=== PATIENT | female | born 1930 | race Caucasian/White ===

== ENCOUNTER 2017-10-07 20:59 | Inpatient (IN) | payer MEDICARE, OTHER ==
[~2017-10-07] VITALS: Ht 165.1 cm; Wt 78.9 kg
[~2017-10-07 20:59] MED LIST: ACETAMINOPHEN325 M1 PO; ADULT LOW DOSE81 MG PO; ARICEPT10 M1 PO; ARICEPT10 MG PO; ARTIFICIAL TEAR15 M1 INTRAOCULR; ASPIRIN EC81 M1 PO; ASPIRIN81 M2 PO; ATENOLOL 50 MG50 M1 PO; ATORVASTATIN CA10 MG PO; AVELOX400 MG PO; CALCARB 600 WI1 EACH PO; CELEBREX50 MG PO; COREG12.5 MG PO; CRANBERRY450 M1 PO; DESYREL50 MG PO; EXELON 9.5 MG9.5 MG; EXELON 9.5 MG9.5 MG TOP; HCTZ PO; HYDROCHLOROTHIA25 M1 PO; KLOR-CON 1010 MEQ PO; LEXAPRO 10 MG T10 MG PO; LEXAPRO20 MG PO; LIPITOR10 MG PO; LOPERAMIDE1 MG/7.5 M PO; MILK OF MA2400 MG/10 PO; MULTI-VITAMIN1 EAC4 PO; NORVASC10 MG PO; ONE-A-DAY WOMENS; PROTONIX40 M2 PO; PROTONIX40 MG PO; REMERON15 MG PO; RISPERDAL0.25 MG PO; SEE COMMENTS; VICODIN PO; VISION VITAMIN1 EACH PO; VITAMIN A10000 UNI3 PO; VITAMIN B-12500 MCG PO; VITAMIN C120 GM PO; VITAMIN D1000 UNI1 PO
[2017-10-07 21:02] VITALS: BP 92/52
[2017-10-07 21:26] LABS: HEMOGLOBIN 11.5 gm/dL (12.0-15.0); MCH 31.9 pg (26.0-34.0); MCV 99.6 fL (80.0-100.0); MPV 10.8 fl. (7.2-11.1); NUCLEATED RBCS 0 /100WBC; PLATELET COUNT* 162 thou/uL (150-400); RBC 3.61 mil/uL (4.20-5.00); RDW-CV 15.7 % (10.5-14.5); WBC 21.8 thou/uL (4.0-11.0)
[2017-10-07 21:38] LABS: CALCIUM 8.5 mg/dL (8.5-10.1); CREATININE 4.5 mg/dL (0.6-1.3)
[2017-10-07 21:41] LABS: ALBUMIN 2.6 g/dL (3.4-5.0); TOTAL BILIRUBIN 0.9 mg/dL (<0.1-1.0); TOTAL PROTEIN 7.2 g/dL (6.4-8.2); TROPONIN-I LEVEL 0.11 ng/mL (<0.06)
[2017-10-07 21:52] LABS: ABSOLUTE LYMPHOCYTES 1.7 thou/uL (0.8-5.3); ABSOLUTE MONOCYTES 0.4 thou/uL (0.0-1.2); ABSOLUTE NEUTROPHILS 19.6 thou/uL (1.6-8.1); PLATELET ESTIMATE ADEQUATE
[2017-10-07 21:52] LABS: HCO3 12.5 mmol/L (22.0-26.0); PCO2 24.9 mmHg (35.0-45.0); PO2 116.9 mmHg (75.0-100.0)
[2017-10-07 21:53] LABS: MAGNESIUM 2.6 mg/dL (1.8-2.4)
[2017-10-08 00:27] VITALS: BP 118/68
[2017-10-08 01:00] VITALS: BP 138/79
[2017-10-08] MEDS ORDERED: ROBAFEN-DM SYR118 ML PO (02:23)
[2017-10-08] MEDS ORDERED: NYAMYC15 GM TOP (02:27)
[2017-10-08 04:00] VITALS: BP 122/95
--- NOTE | 2017-10-08 04:32 | NUR ---
PT NONRESPONSIVE MOANS. DOES NOT FOLLOW COMMANDS. TELEMETRY SHOWS SR. NS AT 100MLS/HR. PT IS NPO. O2 AT 4 LITERS NC. WILL LARGE BRUSED AREA ON R FOOT. R BROWN BRUSED. WILL CONTINUE TO MONITOR.
[2017-10-08 04:45] LABS: HEMATOCRIT 34.2 % (37.0-47.0); HEMOGLOBIN 10.8 gm/dL (12.0-15.0); MCH 31.8 pg (26.0-34.0); MCHC 31.5 g/dL (28.0-37.0); MCV 100.9 fL (80.0-100.0); MPV 10.8 fl. (7.2-11.1); RBC 3.39 mil/uL (4.20-5.00); RDW-CV 15.6 % (10.5-14.5); WBC 18.3 thou/uL (4.0-11.0)
[2017-10-08 05:41] LABS: ALBUMIN 2.5 g/dL (3.4-5.0); CALCIUM 8.2 mg/dL (8.5-10.1); CREATININE 4.1 mg/dL (0.6-1.3); POTASSIUM 4.2 mmol/L (3.5-5.1)
[2017-10-08 09:00] VITALS: BP 126/75
--- NOTE | 2017-10-08 09:56 | EKG ---
[place] [address] ELECTROCARDIOGRAM REPORT Name: DC UREÑA Room: [address] ADM IN M.R.#: [id number] Admission: 10/07/17 Attend Phys: Jacqueline Stokes Discharge: Date of : [birth year] Report #: [id number] THIS REPORT FOR: //name// [facility] ED Test Date: 2017-10-07 Test Time: 21:10:37 Pat Name: DC UREÑA Department: Room: [address] Gender: F Glass Inspector: : [id number] Requested By: Linda Kaur Order Number: [id number] Reading MD: Jaime Ruvalcaba Measurements Intervals [place] Rate: 180 P: 0 SD: QRS: -32 QRSD: 90 T: 160 QT: 267 QTc: 463 Interpretive Statements Supraventricular tachycardia Left axis deviation Repolarization abnormality, prob rate related Compared to ECG 02/15/2015 14:05:34 Early repolarization now present Sinus rhythm no longer present Electronically Signed On 10-08-2017 9:56:22 CDT by Jaime Ruvalcaba [email or web address] <ELECTRONICALLY SIGNED> By: Jaime Ruvalcaba MD, [facility] 10/08/17 0956 09 09 Jaime Ruvalcaba MD, [facility] /EPI
--- NOTE | 2017-10-08 09:57 | EKG ---
[place] [address] ELECTROCARDIOGRAM REPORT Name: DC UREÑA Room: [address] ADM IN M.R.#: [id number] Admission: 10/07/17 Attend Phys: Jacqueline Stokes Discharge: Date of : [birth year] Report #: [id number] THIS REPORT FOR: //name// [facility] ED Test Date: 2017-10-07 Test Time: 21:22:49 Pat Name: DC UREÑA Department: Room: [address] Gender: F Graphite Mill Operator: : [id number] Requested By: Linda Kaur Order Number: [id number] Reading MD: Jaime Ruvalcaba Measurements Intervals [place] Rate: 75 P: 51 UT: 132 QRS: -37 QRSD: 101 T: 159 QT: 427 QTc: 477 Interpretive Statements Sinus rhythm Left atrial enlargement Low voltage, precordial leads Abnormal R-wave progression, early transition LVH with secondary repolarization abnormality Baseline wander in lead(s) III Electronically Signed On 10-08-2017 9:57:15 CDT by Jaime Ruvalcaba [email or web address] <ELECTRONICALLY SIGNED> By: Jaime Ruvalcaba MD, [facility] 10/08/17 0957 21 21 Jaime Ruvalcaba MD, [facility] /EPI
--- NOTE | 2017-10-08 11:03 | NUR ---
WOUND CARE NOTE: CONSULT RECEIVED FOR R. FOOT AND R. LEG PATIENT PRESENTS WITH ECCHYMOSIS TO THE LATERAL ASPECT OF HER RIGHT FOOT EXTENDING TO THE 5TH AND 4TH TOES. NO INDURATION OR FLUCTUANCE NOTED. INTACT SCAB NOTED. ALSO HAS 2 SCABS/ABRASIONS TO THE RIGHT PRETIBIAL ASPECT. THESE ARE WITHOUT S/S OF INFECTION, STABLE. WOULD RECOMMEND MONITORING THESE SITES AND LEAVE OPEN TO AIR AT THIS TIME. WILL SIGN OFF AT THIS TIME, PLEASE RECONSULT IF NEEDED.
[2017-10-08 11:59] VITALS: BP 119/54
--- NOTE | 2017-10-08 12:17 | NUR ---
Pt is a LTC resident at . Spoke with Pt's dtr via phone. Dtr stated that she spoke with today and he recommended hospice. Dtr stated that Pt was on hospice, probably 8-10 years ago, she believes with [facility], dtr in agreement with hospice and with using [facility] again. Faxed referral. Beth, hospital liaison, to be here around 1pm to meet with Pt's dtr. Plan hospice admission and return to at ct. Following.
[2017-10-08 16:22] VITALS: BP 109/49
--- NOTE | 2017-10-08 18:27 | NUR ---
ASSUMED PT CARE AT 0700 PT IS NOT ALERT ONLY AWAKE PT IS CONFUSED AND IMPULSIVE PT PICKS AT SKIN NOSE AND REMOVES OXYGEN, PT HAS COUGH PT SHOWS NO SIGNS OF PAIN PT MOANS AIS NONVERBAL, PT SHOWS NO SIGNS OF SOA REAPPLY OXYGEN FREQUENTLY THROUGH OUT SHIFT, PT IS MEDICAL SURGICAL STATUS, PT IS DNR HOSPICE MET WITH DAUGHTER TO REQUALIFY PT, PT IS TUNRED Q 2 HOURS PT IS INCONTIENT, PT NEEDS ASSISTANCE EATING, PT IS NONAMBULATORY, PT REMOVED IV SELF CAR WHACKER STARTED IV FLUIDS CONTINUE, WILL CONTINUE TO MONITOR
[2017-10-09] VITALS: BP 118/85
[2017-10-09 05:01] LABS: HEMATOCRIT 34.3 % (37.0-47.0); MCV 100.2 fL (80.0-100.0); RBC 3.42 mil/uL (4.20-5.00); RDW-CV 15.9 % (10.5-14.5); WBC 18.9 thou/uL (4.0-11.0)
[2017-10-09 05:49] LABS: CALCIUM 8.8 mg/dL (8.5-10.1); CREATININE 3.2 mg/dL (0.6-1.3); MAGNESIUM 2.7 mg/dL (1.8-2.4); POTASSIUM 4.3 mmol/L (3.5-5.1)
--- NOTE | 2017-10-09 07:08 | NUR ---
PATIENT HAS BEEN SLEEPING MOST OF THE NIGHT, PULLS O2 OFF FREQUENTLY. IVF INFUSING WITHOUT DIFFICULTIES. BED IN LOW POSITION, CALL LIGHT IN REACH. BED ALARM ON.
[2017-10-09 08:00] VITALS: BP 118/104
[2017-10-09 20:00] VITALS: BP 172/99
[2017-10-10 02:59] VITALS: BP 114/65
[2017-10-10 04:44] LABS: ABSOLUTE LYMPHOCYTES 2.8 thou/uL (0.8-5.3); ABSOLUTE MONOCYTES 0.7 thou/uL (0.0-1.2); ABSOLUTE NEUTROPHILS 20.8 thou/uL (1.6-8.1); BASOPHILS 0.1 %; HEMATOCRIT 36.7 % (37.0-47.0); HEMOGLOBIN 11.7 gm/dL (12.0-15.0); LYMPHOCYTES 11.5 %; MCH 31.4 pg (26.0-34.0); MCHC 31.7 g/dL (28.0-37.0); MONOCYTES 2.7 %; MPV 10.5 fl. (7.2-11.1); NUCLEATED RBCS 0 /100WBC; PLATELET COUNT* 103 thou/uL (150-400); POLYS 85.7 %; RBC 3.71 mil/uL (4.20-5.00); RDW-CV 16.2 % (10.5-14.5); WBC 24.3 thou/uL (4.0-11.0)
[2017-10-10 04:55] LABS: CALCIUM 8.7 mg/dL (8.5-10.1); CREATININE 2.3 mg/dL (0.6-1.3); MAGNESIUM 2.4 mg/dL (1.8-2.4); POTASSIUM 3.4 mmol/L (3.5-5.1)
--- NOTE | 2017-10-10 06:14 | NUR ---
PT TRANSFERED TO FLOOR AFTER 0200. REPORT RECIEVED FROM JAM GUZMAN. PT SEVERE DEMENTIA. PT IS INCONT, Q2 TURN. 4L PER NC WITH ADEQUATE SATS. VITALS STABLE AT TRANSFER. PT HAS IV IN RIGHT HAND, FLUIDS INFUSING. PT TAKES MEDS CRUSHED IN PUDDING. PT IS NON VERBAL. SEE ASSESSMENT AND VITALS FOR OTHER DETAILS. WILL CONTINUE PLAN OF CARE
[2017-10-10 09:30] VITALS: BP 154/103
[2017-10-10 16:00] VITALS: BP 127/80
--- NOTE | 2017-10-10 16:27 | NUR ---
PATIENT INCONTINENT OF LARGE AMOUNTS OF URINE THIS SHIFT, NO BM NOTED. IVF CHANGED TO D5 AT 50MLS/HR. ASSISTED PATIENT WITH FEEDING. PILLS CRUSHED IN PUDDING. PATIENT DOES COUGH AT TIME WHEN EATING AND WHEN NOT EATING. DRY COUGH NOTED. PHOTO TAKEN OF RIGHT FOOT WOUND PER PROTOCOL. HEELS REMAIN ELEVATED AND SCD'S IN PLACE.
[2017-10-10 23:40] VITALS: BP 154/100
[2017-10-11 04:02] LABS: HEMATOCRIT 33.5 % (37.0-47.0); HEMOGLOBIN 10.6 gm/dL (12.0-15.0); MCH 31.9 pg (26.0-34.0); MCHC 31.7 g/dL (28.0-37.0); MCV 100.6 fL (80.0-100.0); MPV 11.1 fl. (7.2-11.1); RBC 3.33 mil/uL (4.20-5.00); RDW-CV 16.7 % (10.5-14.5); WBC 18.5 thou/uL (4.0-11.0)
[2017-10-11 04:40] LABS: CALCIUM 8.8 mg/dL (8.5-10.1); CREATININE 1.8 mg/dL (0.6-1.3); MAGNESIUM 2.3 mg/dL (1.8-2.4)
--- NOTE | 2017-10-11 06:56 | NUR ---
ASSESSMENT COMPLETE. PT SLEPT THROUGH THE NIGHT. PT TURNED Q2 FOR SKIN INTEGRITY. PT INCONT. PT IS ON 4L PER NC. IV FLUIDS INFUSING. PT TAKES MEDS CRUSHED WITH APPLESAUCE. SEE ASSESSMENT AND VITALS FOR OTHER DETAILS. CALL LIGHT WITHIN REACH, WILL CONTINUE PLAN OF CARE
[2017-10-11 08:00] VITALS: BP 139/111
--- NOTE | 2017-10-11 11:55 | NUR ---
MARY received call from Beth from [facility] following up with pt dc plans. Pt plan to dc to [facility] with [facility]. MARY to inform [facility] hospice and discuss with [facility] when pt ready to dc.
[2017-10-11 16:00] VITALS: BP 160/46
--- NOTE | 2017-10-11 17:37 | NUR ---
PATIENT HAS BEEN AWAKE THIS SHIFT, TALKING MORE THIS SHIFT. PATIENT HAS APPEARED TO NOT BE IN PAIN. PATIENT REPOSITIONED EVERY 2 HOURS AND [facility]YLAN-CARE PROVIDED AFTER EACH INCONTINENCE EPISODE. PATIENT'S HEELS ELEVATED THROUGHOUT THE SHIFT. IV FLUIDS INCREASED TO 80ML/HR. POTASSIUM REPLACED PER PROTOCOL. PATIENT FED MEALS, MEDS CRUSHED IN APPLESAUCE THIS SHIFT. PATIENT CONTINUES TO TAKE O2 OFF THIS SHIFT, ROOM AIR SAT CHECKED AND PATIENT SATTING 95%. TO HAVE REPEAT LABS IN AM. HOURLY ROUNDING COMPLETED. FALL PRECAUTIONS IN PLACE. CALL LIGHT WITHIN REACH. WILL CONTINUE WITH PLAN OF CARE.
[2017-10-11 20:00] VITALS: BP 178/71
[2017-10-12 00:03] VITALS: BP 181/95
[2017-10-12 04:37] LABS: HEMATOCRIT 32.4 % (37.0-47.0); HEMOGLOBIN 10.5 gm/dL (12.0-15.0); MCH 31.3 pg (26.0-34.0); MCHC 32.4 g/dL (28.0-37.0); MCV 96.7 fL (80.0-100.0); MPV 11.9 fl. (7.2-11.1); RBC 3.35 mil/uL (4.20-5.00); RDW-CV 16.4 % (10.5-14.5)
[2017-10-12 04:42] LABS: CALCIUM 8.4 mg/dL (8.5-10.1); CREATININE 1.4 mg/dL (0.6-1.3); POTASSIUM 3.5 mmol/L (3.5-5.1)
--- NOTE | 2017-10-12 05:51 | NUR ---
ASSUMED PATIENT CARE AT 1930. PATIENT AWAKE AND RESPONDS MINIMALLY, HARD TO UNDERSTAND. IV PATENT TO FLUIDS. WOUND NOTED TO TOP OF RIGHT FOOT, OPEN TO AIR PER WOUND CARE NURSE DIRECTION. NO COMPLAINTS FO PAIN OR DISCOMFORT NOTED. TURNS COMPLETED [id number]. HOURLY ROUNDING AND CUSTOMER SERVICE REPRESENTATIVE TELLER COMPLETED DOCUMENTED.
[2017-10-12 07:45] VITALS: BP 154/71
--- NOTE | 2017-10-12 13:49 | NUR ---
MARY received call from Beth at [place] following up on dc plans for pt. MARY explained pt to remain in hospital at least one more day and will be able to dc possibly tomorrow if sodium level has improved. MARY called Nereida at [facility] at [phone] and provided update on pt status and dc plan. [facility] progress [facility]. MARY to continue to follow.
[2017-10-12 16:04] VITALS: BP 143/77
--- NOTE | 2017-10-12 18:13 | NUR ---
PATIENT HAS BEEN MUCH MORE AWAKE AND MORE VERBAL THIS SHIFT THAN PREVIOUS SHIFTS. PATIENT'S IV FLUIDS INCREASED THIS SHIFT. NA LEVEL TRENDING DOWN SLOWLY, TO HAVE REPEAT LABS IN AM. PATIENT REPOSITIONED EVERY 2 HOURS AND HEELS ELEVATED. [facility]AN-CARE PROVIDED AFTER EACH INCONTINENCE EPISODE. SCDS IN PLACE. PATIENT FED ALL MEALS, APPETITE FAIR. TAKES PILLS CRUSHED IN APPLESAUCE OR PUDDING. PATIENT'S DAUGHTER HERE THIS SHIFT TO VISIT. HOURLY ROUNDING AND FREQUENT OBSERVATIONS MADE. WILL CONTINUE WITH PLAN OF CARE.
[2017-10-13 00:42] VITALS: BP 178/154; BP 178/54
[2017-10-13 04:34] LABS: CALCIUM 7.7 mg/dL (8.5-10.1); CREATININE 1.2 mg/dL (0.6-1.3); MAGNESIUM 1.7 mg/dL (1.8-2.4); POTASSIUM 3.6 mmol/L (3.5-5.1)
[2017-10-13 07:50] VITALS: BP 150/103
--- NOTE | 2017-10-13 10:47 | NUR ---
MARY received notice that pt to dc home to [facility] with [facility] services today. MARY called Nereida with [facility] who confirmed pt to be accepted to return to [facility]. MARY spoke with Beth at [facility] and they will begin services today and meet pt at [facility]. MARY scheduled transport through [facility] ambulance to [facility] pt for transport at 1300. MARY faxed final orders and med list to [facility]. [phone] fax [phone]. MARY called and spoke with pt dtr about dc plan so she is aware and in agreement with plan. No other needs expressed.
[2017-10-13 11:19] VITALS: BP 150/103
[2017-10-13] MEDS ORDERED: CEFDINIR300 MG PO (12:21)
[2017-10-13] MEDS ORDERED: AZITHROMYCIN 2250 MG PO (12:22)
--- NOTE | 2017-10-13 13:18 | NUR ---
REPORT CALLED TO [facility]. PATIENT DISCHARGED VIA AMBULANCE. WOUND PHOTOS OBTAINED PRIOR TO DISCHARGE. ALL BELONGINGS SENT WITH PATIENT.
== END 2017-10-13 13:10 | DRG 871 ==
LOC: M.ERS 20:59 → M.TBA-ER 22:38 → M.2W 22:38 → M.3W 10-10 02:08
PROVIDERS: Emergency Medicine; Internal Medicine; ADMIT Internal Medicine
DX: A41.9 Sepsis, unspecified organism (principal); N17.0 Acute kidney failure with tubular necrosis; E43 Unspecified severe protein-calorie malnutrition; J18.1 Lobar pneumonia, unspecified organism; I21.A1 Myocardial infarction type 2; I47.1 Supraventricular tachycardia; N39.0 Urinary tract infection, site not specified; R53.81 Other malaise; R65.20 Severe sepsis without septic shock; Z66 Do not resuscitate; F32.9 Major depressive disorder, single episode, unspecified; I12.9 Hypertensive chronic kidney disease with stage 1 through stage 4 chronic kidney disease, or unspecified chronic kidney disease; N18.2 Chronic kidney disease, stage 2 (mild); E78.5 Hyperlipidemia, unspecified; K21.9 Gastro-esophageal reflux disease without esophagitis; K75.89 Other specified inflammatory liver diseases; F03.90 Unspecified dementia, unspecified severity, without behavioral disturbance, psychotic disturbance, mood disturbance, and anxiety; E86.0 Dehydration; Z79.2 Long term (current) use of antibiotics; Z88.0 Allergy status to penicillin; Z79.82 Long term (current) use of aspirin; Z79.899 Other long term (current) drug therapy; Z68.29 Body mass index [BMI] 29.0-29.9, adult; Z98.42 Cataract extraction status, left eye; Z98.41 Cataract extraction status, right eye